=== PATIENT | male | born 1985 | race Caucasian/White ===

== ENCOUNTER 2016-10-29 13:57 | Emergency (ER) | payer SELFPAY ==
--- NOTE | ~2016-10-29 | ER ---
PATIENT'S NAME: BONILLA ALMAZAN [facility] AGE: 31 Y [address] ROOM: [place], [place] [address] LOCATION: [facility] ADMIT DATE: 10/29/2016 ER/Outpatient Report DISCHARGE DATE: 10/29/2016 FAMILY PHYSICIAN: PHYSICIAN, NO ATTENDING PHYSICIAN: Remi Johnson Time of Arrival: 1420 hours. Time of Evaluation: 1420 hours. CHIEF COMPLAINT: Toothache, facial swelling. HISTORY OF PRESENT ILLNESS: The patient states that he began having pain and swelling from his right lower wisdom tooth 2 days ago. He is a diesel truck driver. He stopped at a truck stop dentist and was diagnosed with infection and was started on plain amoxicillin. He states he has been taking it as directed, however, the swelling seemed to get worse today than what it had been. He has pain in the right posterior teeth area and has some swelling of the lower jaw. ALLERGIES: Z-SANDRA, SULFA. MEDICATIONS: 1. Penicillin 500 mg q.i.d. He has been on it for 2 days. 2. Lisinopril 20 mg daily. PAST MEDICAL HISTORY: Hypertension. PAST SURGICAL HISTORY: Repair of testicular torsion as an infant. SOCIAL HISTORY: He does work as a diesel truck driver. He is from the [facility]. He has headed to [place], [place] from here. He does smoke 1 pack per day and has for the past 14 years. He states he has made arrangements to see a dentist at the truck stop in [place] when he gets there later this week. REVIEW OF SYSTEMS: All negative other than those mentioned in the HPI. PHYSICAL EXAMINATION: VITAL SIGNS: He weighs 109.1 kg, blood pressure is 172/87, pulse of 110, respirations 16, temperature of 99.1 tympanic, O2 saturation is 94% on room PATIENT'S NAME: BONILLA ALMAZAN [facility] AGE: 31 Y [address] ROOM: [place], [place] [address] LOCATION: [facility] ADMIT DATE: 10/29/2016 ER/Outpatient Report DISCHARGE DATE: 10/29/2016 FAMILY PHYSICIAN: PHYSICIAN, NO ATTENDING PHYSICIAN: Remi Johnson air. GENERAL: He is awake, alert, and oriented x4. SKIN: His skin is pink, warm, and dry. RESPIRATIONS: Even and nonlabored. Lung sounds are clear throughout. HEART: Regular rate and rhythm. The patient has swelling and redness of the right posterior gum area. It is tender to touch in that area. Negative lymph nodes of the cervical anterior area. IMPRESSION: Infected tooth. PLAN: Discussed with the patient need to change the antibiotic to Augmentin to cover him more thoroughly since he is a smoker. Prescription was written for Augmentin 875 b.i.d. x10 days, and he is to see the dentist as scheduled. He verbalized understanding. KILLIAN VALIENTE APRN FOR MD [facility]/holly /[id number] d: 10/29/164 t: 10/31/16 1232, OUTPATIENT REPORT
== END 2016-10-29 14:37 | disposition disaster alternative care site (69) ==
LOC: GMED 13:57
DX: K04.7 Periapical abscess without sinus (principal); F17.210 Nicotine dependence, cigarettes, uncomplicated; I10 Essential (primary) hypertension; Z88.2 Allergy status to sulfonamides